=== PATIENT | female | born 1990 | race Caucasian/White ===

== ENCOUNTER → 2024-05-31 08:08 | Outpatient (BNVA) | payer MEDICARE, SELFPAY | PROVIDERS: PCP Family Medicine; Referring Provider Family Medicine; Visit Provider Podiatrist | DX: L60.3 Nail dystrophy (principal); B35.1 Tinea unguium | CPT/HCPCS: 99204 ==

== ENCOUNTER → 2024-09-27 10:25 | Outpatient (BNVA) | payer MEDICARE, SELFPAY | PROVIDERS: PCP Family Medicine; Referring Provider Family Medicine; Visit Provider Podiatrist | DX: B35.1 Tinea unguium (principal); L60.3 Nail dystrophy | CPT/HCPCS: 99213 ==

== ENCOUNTER → 2025-02-21 09:46 | Outpatient (BNVA) | payer MEDICARE, SELFPAY | PROVIDERS: PCP Family Medicine; Referring Provider Family Medicine; Visit Provider Podiatrist | DX: L60.3 Nail dystrophy (principal); B35.1 Tinea unguium | CPT/HCPCS: 99213 ==